=== PATIENT | female | born 1945 | race Caucasian/White ===

== ENCOUNTER → 2020-07-11 | Outpatient (CLI) | payer MEDICARE ==
--- NOTE | 2020-07-11 12:19 | Diagnostic Imaging Report ---
ADDENDUM #1 ADDENDUM: Within the isthmus there is a 0.8 cm hypoechoic well-circumscribed nodule at the mid aspect without microcalcification. Signed by: Dante Torres MD on 07/11/2020 3:11 PM ORIGINAL REPORT Thyroid ultrasound. History: Thyroid nodules Comparison: None available. Discussion: Transverse and longitudinal images of the thyroid were obtained demonstrating normal echogenicity of the thyroid. The right thyroid lobe measures 4.9 x 1.9 x 2.1 cm. No nodules are present. The left thyroid lobe measures 5.4 x 2.1 x 1.5 cm. Multiple nodules are identified measuring up to 1.1 cm. The largest is in the lateral/mid pole and is well-circumscribed and hyperechoic, measuring 1.1 x 0.8 x 0.7 cm without microcalcification. Additional 1 cm nodules identified superiorly and inferiorly and are well circumscribed and isoechoic The isthmus measures 3 mm, within normal limits. There is a 0 point centimeter hypoechoic well-circumscribed nodule at the mid aspect without macrocalcification. IMPRESSION: Multiple left-sided thyroid nodules, the largest are described above. All are TI-RADS 3 or less. No further follow-up required. Signed by: Dante Torres MD on 07/11/2020 12:16 PM
== END ==
LOC: US 09:26
PROVIDERS: ATTEND Otolaryngology
DX: E04.2 Nontoxic multinodular goiter (principal)
CPT/HCPCS: 76536

== ENCOUNTER → 2021-07-03 | Outpatient (CLI) | payer MEDICARE | LOC: US 08:34 | PROVIDERS: ATTEND Otolaryngology | DX: E04.2 Nontoxic multinodular goiter (principal) | CPT/HCPCS: 76536 ==

== ENCOUNTER → 2022-07-15 | Outpatient (CLI) | payer MEDICARE | LOC: US 08:27 | PROVIDERS: ATTEND Otolaryngology | DX: E04.2 Nontoxic multinodular goiter (principal) | CPT/HCPCS: 76536 ==

== ENCOUNTER → 2023-08-10 | Outpatient (REF) | payer MEDICARE ==
[~2023-08-10] MED LIST: LIDOCAINE HCL 1% LOCAL INJ 20 ML VIAL ONE
== END ==
LOC: US 09:04
PROVIDERS: ATTEND Otolaryngology
DX: E04.2 Nontoxic multinodular goiter (principal)
CPT/HCPCS: 10005; 88172; 88173; J2001